=== PATIENT | female | born 1955 | race Caucasian/White ===

== ENCOUNTER → 2023-08-13 | Outpatient (CLI) | payer MEDICARE ==
--- NOTE | 2023-08-13 22:20 | BD ---
EXAMINATION TYPE: Axial Bone Density DATE OF EXAM: 08/13/2023 CLINICAL HISTORY: 68 years old Female. ICD-10 CODE: N95.8 MENOPAUSE Height: 65.2 Weight: 255 FRAX RISK QUESTIONS: History of Fracture in Adulthood: yes 3. Menopause before 45: no at 56 yrs Current Tobacco Use: yes RISK FACTORS HISTORY OF: hx of rt tib fib fxs with surgical repair and rt ankle as well MEDICATIONS: vit d and calcium, EXAM MEASUREMENTS: Bone mineral densitometry was performed using the [facility]. Bone mineral density as measured about the Lumbar spine is: ----- L1-L4(G/cm2): 1.321 T Score Values are as follows: ----- L1: 0.7 ----- L2: 2.2 ----- L3: 0.8 ----- L4: 0.8 ----- L1-L4: 1.2 Z Score Values are as follows: ----- L1: 1.2 ----- L2: 2.6 ----- L3: 1.2 ----- L4: 1.3 ----- L1-L4: 1.6 Bone mineral density is her first DEXA study at [facility]. Bone mineral density about the R hip (g/cm2): 0.889 Bone mineral density about the L hip (g/cm2): 0.885 T Score values are as follows: -----R Neck: -1.2 -----L Neck: -1.8 -----R Total: -0.9 -----L Total: -1.0 Z Score values are as follows: -----R Neck: -0.4 -----L Neck: -1.0 -----R Total: -0.4 -----L Total: -0.5 Bone mineral density is her first bone density at [facility]. FRAX%s: The graph provided illustrates a 15.1% chance for a major osteoporotic fx and a 2.1% chance f or the hips probability for fx in 10 years time. IMPRESSION: Osteopenia (T Score between -2.5 and -1). There is slightly increased risk of fracture and the patient may be considered for treatment. Re-Screen 2-5 years. NOTE: T-SCORE=SD OF THE YOUNG ADULT MEAN.
--- NOTE | 2023-08-15 20:12 | MM ---
Reason for Exam: Screening (asymptomatic). Patient History: Menarche at age 14. First Full-Term at age 19. Postmenopausal. Maternal aunt had breast cancer. Risk Values: Nasrin 5 year model risk: 1.2%. NCI Lifetime model risk: 4.2%. Prior Study Comparison: No prior studies available for comparison. Tissue Density: There are scattered fibroglandular densities. Findings: Analyzed By CAD. In the right breast on the MLO view, superior asymmetric density at a middle depth for which further evaluation is recommended. Additional nodularity in the right breast 8 to 9:00 position, likely intramammary lymph noted which can be evaluated by ultrasound. Otherwise, no discrete abnormality. Overall Assessment: Incomplete: need additional imaging evaluation, BI-RAD 0 Management: Special View Mammogram of both breasts. Diagnostic Breast Ultrasound of the right breast. Additional spot 3-D CC and lateral views for the superior asymmetric density. Targeted ultrasound for the lateral nodularity, suspected intramammary lymph nodes. [facility] will attempt to contact patient to return for supplemental views and ultrasound if indicated. Electronically signed and approved by: Sydnie Roca M.D. Radiologist
== END | disposition home or self-care (01) ==
LOC: RADBDWWP 11:10
PROVIDERS: ATTEND Internal Medicine
DX: Z12.31 Encounter for screening mammogram for malignant neoplasm of breast (principal); M85.89 Other specified disorders of bone density and structure, multiple sites; N95.8 Other specified menopausal and perimenopausal disorders; Z80.3 Family history of malignant neoplasm of breast; Z78.0 Asymptomatic menopausal state
CPT/HCPCS: 77063; 77067; 77080

== ENCOUNTER → 2023-08-20 | Outpatient (CLI) | payer MEDICARE ==
--- NOTE | 2023-08-20 14:46 | MM ---
Reason for Exam: Additional evaluation requested from abnormal screening. Last screening mammogram was performed less than 1 month ago. Patient History: Menarche at age 14. First Full-Term at age 19. Postmenopausal. Maternal aunt had breast cancer. Risk Values: Nasrin 5 year model risk: 1.2%. NCI Lifetime model risk: 4.2%. Prior Study Comparison: 08/13/2023 Bilateral MG 3D screening mammo w/cad, [facility]. Tissue Density: Right: There are scattered fibroglandular densities. Findings: Analyzed By CAD. On additional views, the lateral nodularity shows reniform appearance suggesting multiple intramammary nodes, largest located at the 8:00 position middle depth. The question superior asymmetric density does not clearly persist on additional views. Further ultrasound evaluation recommended. Overall Assessment: Incomplete: need additional imaging evaluation, BI-RAD 0 Management: Diagnostic Breast Ultrasound of the right breast. Laterally 7:00 to 11:00. Electronically signed and approved by: Sydnie Roca M.D. Radiologist
--- NOTE | 2023-08-20 15:12 | USB ---
Reason for Exam: Additional evaluation requested from abnormal screening. Patient History: Menarche at age 14. First Full-Term at age 19. Postmenopausal. Maternal aunt had breast cancer. Risk Values: Nasrin 5 year model risk: 1.2%. NCI Lifetime model risk: 4.2%. Technique: Method: Targeted. Prior Study Comparison: 08/13/2023 Bilateral MG 3D screening mammo w/cad, [facility]. Findings: The lateral section of the breast of the right breast, the axilla of the right breast and the retroareolar of the right breast were scanned. Targeted ultrasound lateral aspect of the right breast 7:00 to 11:00 including standing of the subareolar region and axilla. There are 2 intramammary lymph nodes present measuring up to 6 mm and 3 mm, mammographic correlates. No other solid or cystic lesion or axillary adenopathy. As no prior mammograms are available for comparison, six-month follow-up diagnostic right breast mammogram is recommended. Overall Assessment: Probably benign, BI-RAD 3 Management: Diagnostic Mammogram of the right breast in 6 months. A clinical breast exam by your physician is recommended on an annual basis and results should be correlated with mammographic findings. This exam should not preclude additional follow-up of suspicious palpable abnormalities. Results were given to the patient verbally at the time of exam. Electronically signed and approved by: Sydnie Roca M.D. Radiologist
== END | disposition home or self-care (01) ==
LOC: RADMAMWWP 14:13
PROVIDERS: ATTEND Internal Medicine
DX: R92.323 Mammographic fibroglandular density, bilateral breasts (principal); Z78.0 Asymptomatic menopausal state; Z80.3 Family history of malignant neoplasm of breast
CPT/HCPCS: 77065; 76642; G0279; 77061

== ENCOUNTER → 2023-08-20 | Outpatient (CLI) | payer MEDICARE ==
--- NOTE | 2023-08-20 21:04 | XR ---
EXAMINATION TYPE: XR cervical spine 6 views comp, XR lumbosacral spine 5 views DATE OF EXAM: 08/20/2023 COMPARISON: None HISTORY: 68-year-old female limit range of motion, numbness in arms, [id number] CERVICALGIA, LB STR AIN FINDINGS: Cervical spine: Uncovertebral joint and facet arthropathy lower cervical spine. Reversal of the normal cervical lordo sis. Trace grade 1 retrolisthesis C5-C6. Moderate disc/endplate degenerative change C5-C7 levels. Rem aining alignment appears maintained. On the right, mild bony neuroforaminal narrowing at C5-C6. On th e left, there may be greater degree of neural foraminal narrowing mid and lower cervical spine though positioning limits assessment of the oblique view. Limited odontoid view shows no gross evidence of body. Lumbar spine: Scattered mild to moderate degenerative disc disease and endplate spondylosis. Hypertrophic facet art hropathy is present throughout. Degenerative grade 1 retrolisthesis L2-L3 and L3-L4. Trace grade 1 an terolisthesis L4-L5. Vertebral body heights are preserved. 5 lumbar type vertebral bodies. IMPRESSION: 1. Cervical spine: Moderate spondylotic changes especially C5-C7 levels. Degenerative trace grade 1 r etrolisthesis C5-C6. 2. Lumbar spine: [id number] degenerative disc disease. Hypertrophic facet arthropathy throughou t with degenerative grade 1 spondylolisthesis L2-L5 levels. No vertebral compression collapse.
== END | disposition home or self-care (01) ==
LOC: RADXRYALE 10:28
PROVIDERS: ATTEND Internal Medicine
DX: M47.812 Spondylosis without myelopathy or radiculopathy, cervical region (principal); M43.16 Spondylolisthesis, lumbar region; M51.36 Other intervertebral disc degeneration, lumbar region; M43.12 Spondylolisthesis, cervical region; M47.816 Spondylosis without myelopathy or radiculopathy, lumbar region; S39.012A Strain of muscle, fascia and tendon of lower back, initial encounter; X58.XXXA Exposure to other specified factors, initial encounter
CPT/HCPCS: 72050; 72110